=== PATIENT | female | born 1970 | race Caucasian/White ===

== ENCOUNTER → 2017-02-11 | Outpatient (CLI) | payer OTHER | END | disposition home or self-care (01) | LOC: CFH 12:12 | PROVIDERS: ATTEND Family Medicine | DX: S99.911A Unspecified injury of right ankle, initial encounter (principal); S93.401A Sprain of unspecified ligament of right ankle, initial encounter; M25.471 Effusion, right ankle; M65.9 Synovitis and tenosynovitis, unspecified; X58.XXXA Exposure to other specified factors, initial encounter; Y93.89 Activity, other specified; Y92.89 Other specified places as the place of occurrence of the external cause; Y99.8 Other external cause status ==

== ENCOUNTER → 2017-04-23 | Outpatient (CLI) | payer OTHER ==
[2017-04-23 10:25] LABS: ASPARTATE AMINO TRANSFERASE 16 U/L (15-37); BLOOD UREA NITROGEN 22 mg/dL (7-18)
== END | disposition home or self-care (01) ==
LOC: LAB 10:00
PROVIDERS: ATTEND Family Medicine
DX: Z00.01 Encounter for general adult medical examination with abnormal findings (principal); E55.9 Vitamin D deficiency, unspecified; D64.9 Anemia, unspecified; E78.89 Other lipoprotein metabolism disorders; Z79.891 Long term (current) use of opiate analgesic
CPT/HCPCS: 36415; 80053; 80061; 82306; 85025

== ENCOUNTER 2019-07-19 08:05 | Outpatient (CLI) | payer OTHER ==
[2019-07-19] MEDS ORDERED: TRAM50TA2 PO (08:23)
[2019-07-19] MEDS ORDERED: ESCI20TA10 PO (08:23)
[2019-07-19] MEDS ORDERED: FENO145T32 PO (08:23)
[2019-07-19] MEDS ORDERED: GABA300C10 PO (08:23)
== END 2019-07-19 23:59 | disposition home or self-care (01) ==
LOC: STAR 08:05
PROVIDERS: ATTEND Obstetrics & Gynecology Gynecology
DX: Z02.9 Encounter for administrative examinations, unspecified (principal)

== ENCOUNTER 2019-08-08 06:10 | Day surgery (SDC) | payer OTHER ==
[~2019-08-08] VITALS: Ht 157.5 cm; Wt 75.7 kg
[~2019-08-08 06:10] MED LIST: ESCI20TA10 PO; FENO145T32 PO; GABA300C10 PO; TRAM50TA2 PO
[2019-08-08] MEDS ORDERED: SILVER NITRATE STICK TP ONE (06:39)
[2019-08-08] MEDS ORDERED: FLUORESCEIN SODIUM 500 MG/5 ML ONE (06:40)
[2019-08-08] MEDS ORDERED: LIDOCAINE 1%, 20ML ONE (06:40)
[2019-08-08] MEDS ORDERED: EPINEPHRINE 1 MG/ML, 1ML ONE (06:40)
[2019-08-08] MEDS ORDERED: LACTATED RINGERS 1,000 ML IV SCH (06:58)
[2019-08-08] MEDS ORDERED: LIDOCAINE-MPF 1%, 2ML INFIL ONE (07:00)
[2019-08-08 07:05] LABS: HCG UR SG 1.015 (1.003-1.030)
[2019-08-08] MEDS ORDERED: MONT10TA6 PO (07:08)
[2019-08-08] MEDS ORDERED: BUDE10.22 INH (07:08)
[2019-08-08] MEDS ORDERED: PROP10TA16 PO (07:08)
[2019-08-08] MEDS ORDERED: ALBU8.5H8 INH (07:09)
[2019-08-08] MEDS ORDERED: FENTANYL PF 250 MCG/5ML ONE (07:57)
[2019-08-08] MEDS ORDERED: MIDAZOLAM 1 MG/ML, 2ML ONE (07:57)
[2019-08-08] MEDS ORDERED: GABAPENTIN 300 MG CAPSULE ONE (08:08)
[2019-08-08] MEDS ORDERED: OXYMETAZOLINE NASAL SPRAY 0.05%, 15ML ONE (08:08)
[2019-08-08] MEDS ORDERED: ACETAMINOPHEN 500 MG TABLET ONE (08:08)
[2019-08-08] MEDS ORDERED: NEOSTIGMINE 1 MG/ML, 10ML ONE (10:03)
[2019-08-08] MEDS ORDERED: DEXAMETHASONE 4 MG/ML, 1ML ONE (10:03)
[2019-08-08] MEDS ORDERED: GLYCOPYRROLATE 0.2MG/1ML, 5ML ONE (10:03)
[2019-08-08] MEDS ORDERED: ONDANSETRON 2MG/ML, 2ML ONE (10:03)
[2019-08-08] MEDS ORDERED: SUCCINYLCHOLINE 20 MG/ML, 10ML ONE (10:03)
[2019-08-08] MEDS ORDERED: CEFAZOLIN 1,000 MG ONE (10:03)
[2019-08-08] MEDS ORDERED: PROPOFOL 10 MG/ML, 20ML ONE (10:03)
[2019-08-08] MEDS ORDERED: ROCURONIUM 10MG/ML,5ML ONE (10:03)
[2019-08-08] MEDS ORDERED: HYDROmorphone 1 MG/ML, 1ML VIAL ONE (10:28)
[2019-08-08] MEDS ORDERED: FENTANYL PF 100 MCG/2ML ONE (10:28)
[2019-08-08] MEDS ORDERED: OXYcodone 5 MG/5 ML ORAL.SOL UDC ONE (10:29)
[2019-08-08] MEDS ORDERED: MEPERIDINE/PF 25MG/0.5ML IVPush PRN (10:30)
[2019-08-08] MEDS ORDERED: HYDROmorphone 2 MG/ML, 1ML IVPush PRN (10:30)
[2019-08-08] MEDS ORDERED: LABETALOL 5MG/ML, 20ML IV PRN (10:30)
[2019-08-08] MEDS ORDERED: PROMETHAZINE 25 MG/ML, 1ML IV PRN (10:30)
[2019-08-08] MEDS ORDERED: hydrALAzine 20 MG/ML, 1ML IV PRN (10:30)
[2019-08-08] MEDS ORDERED: ALBUTEROL SULFATE 2.5 MG/3 ML NPPB PRN (10:30)
[2019-08-08] MEDS ORDERED: OXYcodone 5 MG/5 ML ORAL.SOL UDC PO PRN (10:30)
[2019-08-08] MEDS ORDERED: ACETAMINOPHEN 325 MG TABLET PO PRN (10:30)
[2019-08-08] MEDS: FENTANYL PF 100 MCG/2ML IV PRN ×2 (10:32→10:48)
[2019-08-08] MEDS ORDERED: DIAZEPAM 5 MG/ML, 2ML ONE (10:38)
[2019-08-08] MEDS: DIAZEPAM 5 MG/ML, 2ML IVPush PRN ×2 (10:42→10:54)
[2019-08-08] MEDS ORDERED: ONDANSETRON 2MG/ML, 2ML IVPush PRN (12:00)
== END 2019-08-08 15:08 | disposition home or self-care (01) ==
LOC: OUT 06:10
PROVIDERS: ATTEND Obstetrics & Gynecology Gynecology
DX: N92.0 Excessive and frequent menstruation with regular cycle (principal); D25.9 Leiomyoma of uterus, unspecified; N81.5 Vaginal enterocele; Z79.891 Long term (current) use of opiate analgesic
CPT/HCPCS: 36415; 58294; 81025; 85014; 88307; J0171; J0690; J1100; J1170; J2250; J2405; J2704; J2710; J3010; J3360; J7120; J0330

== ENCOUNTER → 2020-04-03 | Outpatient (CLI) | payer OTHER ==
[~2020-04-03] MED LIST changes: +ALBU8.5H8 INH; +BUDE10.22 INH; +MONT10TA6 PO; +PROP10TA16 PO
[2020-04-03 07:43] LABS: BASOPHILS # (AUTO) 0.02 x10^3/uL (0-0.1); BASOPHILS % (AUTO) 0 % (0-1); EOSINOPHILS # (AUTO) 0.09 x10^3/uL (0-0.4); EOSINOPHILS % (AUTO) 1 % (1-7); LYMPHOCYTES # (AUTO) 0.99 x10^3/uL (1-3.4); LYMPHOCYTES % (AUTO) 13 % (22-44); MD NO; MEAN CORPUSCULAR HEMOGLOBIN 31.1 pg (27.0-34.8); MEAN CORPUSCULAR HGB CONC 32.8 g/dL (32.4-35.8); MEAN CORPUSCULAR VOLUME 94.8 fL (80-100); MEAN PLATELET VOLUME 6.9 fL (7.4-10.4); MONOCYTES # (AUTO) 0.42 x10^3/uL (0.2-0.8); MONOCYTES % (AUTO) 6 % (2-9); NEUTROPHILS # (AUTO) 6.02 x10^3/uL (1.8-6.8); NEUTROPHILS % (AUTO) 80 % (42-75); PLATELET COUNT 314 x10^3/uL (130-400); RED BLOOD COUNT 4.32 x10^6/uL (3.82-5.3); RED CELL DISTRIBUTION WIDTH 12.6 % (9.6-15.2)
[2020-04-03 07:53] LABS: ALANINE AMINOTRANSFERASE 68 U/L (12-78); ALBUMIN 4.2 g/dL (3.4-5.0); ANION GAP 8 mmol/L (5-15); CALCIUM 9.2 mg/dL (8.5-10.1); CHLORIDE 105 mmol/L (98-107); CREATININE 1.05 mg/dL (0.55-1.02)
[2020-04-03 07:55] LABS: ALKALINE PHOSPHATASE 59 U/L (45-117); BILIRUBIN,TOTAL 0.4 mg/dL (0.2-1.0); TOTAL PROTEIN 7.8 g/dL (6.4-8.2)
== END | disposition home or self-care (01) ==
LOC: LAB 07:27
PROVIDERS: ATTEND Family Medicine
DX: J45.909 Unspecified asthma, uncomplicated (principal); G47.33 Obstructive sleep apnea (adult) (pediatric)
CPT/HCPCS: 36415; 80053; 82785; 85025; 86003

== ENCOUNTER 2020-04-11 14:08 | Outpatient (CLI) | payer OTHER | END 2020-04-11 23:59 | disposition home or self-care (01) | LOC: CARD 14:08 | PROVIDERS: ATTEND Internal Medicine Critical Care Medicine | DX: G47.33 Obstructive sleep apnea (adult) (pediatric) (principal) | CPT/HCPCS: 94060; 94726; 94729 ==

== ENCOUNTER → 2020-07-01 | Outpatient (CLI) | payer OTHER ==
[2020-07-01 08:12] LABS: MICROSCOPIC AUTO
[2020-07-01 08:17] LABS: ALBUMIN 4.2 g/dL (3.4-5.0); ANION GAP 9 mmol/L (5-15); CALCIUM 9.4 mg/dL (8.5-10.1); CHLORIDE 106 mmol/L (98-107)
[2020-07-01 08:19] LABS: BASOPHILS # (AUTO) 0.05 x10^3/uL (0-0.1); BASOPHILS % (AUTO) 1 % (0-1); EOSINOPHILS # (AUTO) 0.22 x10^3/uL (0-0.4); EOSINOPHILS % (AUTO) 3 % (1-7); LYMPHOCYTES # (AUTO) 1.82 x10^3/uL (1-3.4); LYMPHOCYTES % (AUTO) 24 % (22-44); MD NO; MEAN CORPUSCULAR HEMOGLOBIN 29.9 pg (27.0-34.8); MEAN CORPUSCULAR HGB CONC 32.7 g/dL (32.4-35.8); MEAN CORPUSCULAR VOLUME 91.4 fL (80-100); MEAN PLATELET VOLUME 7.1 fL (7.4-10.4); MONOCYTES # (AUTO) 0.58 x10^3/uL (0.2-0.8); MONOCYTES % (AUTO) 8 % (2-9); NEUTROPHILS # (AUTO) 4.85 x10^3/uL (1.8-6.8); NEUTROPHILS % (AUTO) 65 % (42-75); PLATELET COUNT 359 x10^3/uL (130-400); RED CELL DISTRIBUTION WIDTH 13.4 % (9.6-15.2)
[2020-07-01 08:25] LABS: ALANINE AMINOTRANSFERASE 31 U/L (12-78); ALKALINE PHOSPHATASE 47 U/L (45-117); BILIRUBIN,TOTAL 0.3 mg/dL (0.2-1.0); CHOL/HDL RATIO 3.4; CHOLESTEROL, TOTAL 154 mg/dL (140-239); CREATININE 0.96 mg/dL (0.55-1.02); HDL CHOL % 29 % (28-40); HDL CHOLESTEROL (DIRECT) 45 mg/dL (40-60); LDL CHOLESTEROL,CALCULATED 89 mg/dL (54-169); TOTAL PROTEIN 7.7 g/dL (6.4-8.2); TRIGLYCERIDES 102 mg/dL (50-200); VLDL CHOLESTEROL 20 mg/dL (0-25)
[2020-07-01 08:26] LABS: FREE T4 (FREE THYROXINE) 1.05 ng/dL (0.76-1.46)
== END | disposition home or self-care (01) ==
LOC: LAB 07:40
PROVIDERS: ATTEND Family Medicine
DX: E55.9 Vitamin D deficiency, unspecified (principal); R53.83 Other fatigue
CPT/HCPCS: 36415; 80053; 80061; 81001; 82306; 83036; 84439; 84443; 84481; 85025